=== PATIENT | female | born 1940 | race Caucasian/White ===

== ENCOUNTER 2017-03-27 21:09 | Inpatient (IN) | payer OTHER ==
[~2017-03-27] VITALS: Ht 177.8 cm; Wt 103.4 kg
[2017-03-27 21:14] VITALS: BP_SYST 138
[2017-03-27] MEDS ORDERED: NACL 0.9% 1,000 ML IV ONE (21:45)
[2017-03-27 22:28] LABS: BASOPHILS # (AUTO) 0.1 K/uL (0.0-0.2); BASOPHILS % (AUTO) 0.8 % (0.0-2.0); EOSINOPHILS % (AUTO) 0.1 % (0.0-4.0); HEMATOCRIT 37.2 % (36-48); HEMOGLOBIN 12.6 g/dL (12.0-16.0); LYMPHOCYTES # (AUTO) 1.7 K/uL (1.0-5.5); LYMPHOCYTES % (AUTO) 12.5 % (20.5-51.5); MEAN CORPUSCULAR HEMOGLOBIN 31 pg (27-31); MEAN CORPUSCULAR HGB CONC 34 % (32-36); MEAN CORPUSCULAR VOLUME 92 fL (79.0-98.0); MONOCYTES % (AUTO) 7.8 % (1.7-9.3); NEUTROPHILS # (AUTO) 10.6 K/uL (1.8-7.7); NEUTROPHILS % (AUTO) 78.8 % (40.0-70.0); PLATELET COUNT (AUTO) 264 K/uL (130-430); RED BLOOD CELL COUNT(AUTO) 4.05 MIL/uL (4.2-6.2); RED CELL DISTRIBUTION WIDTH 12.1 % (9.0-15.0); WHITE BLOOD COUNT (AUTO) 13.4 K/uL (4.8-10.8)
[2017-03-27 22:30] LABS: ANION GAP 11 (5-15); CALCIUM 8.4 mg/dL (8.4-11.0); CHLORIDE 97 mmol/L (98-107); CREATININE 0.57 mg/dL (0.55-1.30); GLUCOSE 121 mg/dL (70-99); POTASSIUM 3.3 mmol/L (3.5-5.1); SODIUM SERUM 132 mmol/L (136-145); UREA NITROGEN, BLOOD 9 mg/dL (8-21)
[2017-03-27 22:35] LABS: ALANINE AMINOTRANSFERASE 21 U/L (12-78); ALBUMIN 3.1 g/dL (3.4-4.8); ASPARTATE AMINOTRANSFERASE 21 U/L (10-37); TOTAL BILIRUBIN 0.6 mg/dL (0.0-1.0)
[2017-03-27 22:36] LABS: BILIRUBIN,URINE NEGATIVE (NEGATIVE); BLOOD, URINE 3+ (NEGATIVE); CLARITY/URINE SL CLOUDY (CLEAR); COLOR,URINE YELLOW (YELLOW); GLUCOSE,URINE NEGATIVE (NEGATIVE); KETONES,URINE NEGATIVE (NEGATIVE); LEUKOCYTE ESTERASE ,URINE 1+ (NEGATIVE); NITRITE, URINE NEGATIVE (NEGATIVE); PROTEIN URINE NEGATIVE (NEGATIVE); UROBILINOGEN,URINE 0.2 (0.2-1.0)
[2017-03-27 22:40] LABS: BACTERIA,URINE MANY /HPF (None Seen); URINE AMORPHOUS URATE 1+ /HPF (None Seen)
[2017-03-28] VITALS (7 sets, daily range): BP systolic 117–154
[2017-03-28] MEDS ORDERED: cefTRIAXone 1 GM VIAL ONE (00:30)
[2017-03-28] MEDS ORDERED: D5NS 1,000 ML IV SCH (01:00)
[2017-03-28] MEDS ORDERED: ASPI81TA2 PO ×2 (01:01→05:35)
[2017-03-28] MEDS ORDERED: MUPI1OIN4 ×2 (01:01→05:35)
[2017-03-28] MEDS ORDERED: CEL20 PO ×2 (01:01→05:35)
[2017-03-28] MEDS ORDERED: LIP10 PO (01:01)
[2017-03-28] MEDS ORDERED: DORZ10DR10 OP ×2 (01:01→05:35)
[2017-03-28] MEDS ORDERED: DONE10TA44 PO ×2 (01:01→05:35)
[2017-03-28] MEDS ORDERED: MEMA10TA12 PO ×2 (01:01→05:35)
[2017-03-28] MEDS ORDERED: [UNRECOGNIZED DRUG - CODE] PO ×2 (01:01→05:35)
[2017-03-28] MEDS ORDERED: valACYclovir HCL 500 MG TABLET PO SCH (01:15)
[2017-03-28] MEDS ORDERED: FLU VACC QS 2017-18(36MOS+)/PF 0.5 ML/SYR SYRINGE I.M. PRN ×2 (02:00→17:30)
[2017-03-28] MEDS ORDERED: ACETAMINOPHEN 325 MG TABLET PO PRN (02:15)
[2017-03-28] MEDS: 0.45% NACL 1,000 ML IV SCH ×2 (03:28→20:41)
[2017-03-28] MEDS ORDERED: ATOR10TA68 PO (05:35)
[2017-03-28] MEDS ORDERED: cefTRIAXone 1 GM in D5W 50 ML IV ONE ×3 (09:00)
[2017-03-28] MEDS ORDERED: LEVOFLOXACIN 500 MG/D5W 100 ML IV SCH (09:00)
[2017-03-28] MEDS ORDERED: ATORVASTATIN 10 MG TABLET PO SCH (09:00)
[2017-03-28] MEDS ORDERED: DORZOLAMIDE HCL/TIMOLOL MAL. 10 ML EYE DROPS (COSOPT) OP SCH (09:00)
[2017-03-28] MEDS ORDERED: CITALOPRAM HYDROBROMIDE 20 MG TABLET PO SCH (09:00)
[2017-03-28] MEDS ORDERED: MEMANTINE HCL 5 MG TABLET PO SCH (09:00)
[2017-03-28] MEDS ORDERED: ASPIRIN 81 MG TAB.CHEW PO SCH (09:00)
[2017-03-28] MEDS ORDERED: MUPIROCIN NASAL 2% OINT. 1 GM NS PRN (11:45)
[2017-03-28] MEDS: cefTRIAXone 1 GM in D5W 50 ML IV SCH (11:45)
[2017-03-28 11:56] LABS: BASOPHILS % (AUTO) 0.4 % (0.0-2.0); EOSINOPHILS % (AUTO) 0.3 % (0.0-4.0); HEMATOCRIT 35.3 % (36-48); HEMOGLOBIN 11.9 g/dL (12.0-16.0); LYMPHOCYTES # (AUTO) 1.5 K/uL (1.0-5.5); LYMPHOCYTES % (AUTO) 12.8 % (20.5-51.5); MEAN CORPUSCULAR HEMOGLOBIN 31 pg (27-31); MEAN CORPUSCULAR HGB CONC 34 % (32-36); MEAN CORPUSCULAR VOLUME 93 fL (79.0-98.0); MONOCYTES # (AUTO) 1.3 K/uL (0.0-1.0); MONOCYTES % (AUTO) 11.3 % (1.7-9.3); NEUTROPHILS # (AUTO) 9.1 K/uL (1.8-7.7); NEUTROPHILS % (AUTO) 75.2 % (40.0-70.0); PLATELET COUNT (AUTO) 223 K/uL (130-430); RED BLOOD CELL COUNT(AUTO) 3.81 MIL/uL (4.2-6.2); RED CELL DISTRIBUTION WIDTH 11.9 % (9.0-15.0); WHITE BLOOD COUNT (AUTO) 11.9 K/uL (4.8-10.8)
[2017-03-28] MEDS ORDERED: COMMUNICATION ORDER XX ONE (12:30)
[2017-03-28] MEDS ORDERED: DONEPEZIL HCL 5 MG TABLET (ARICEPT) PO SCH ×2 (21:00)
[2017-03-28] MEDS: NYSTATIN 30 GM TOPICAL CREAM TP SCH (23:51)
[2017-03-28] MEDS: DORZOLAMIDE HCL/TIMOLOL MAL. 10 ML EYE DROPS (COSOPT) OP SCH (23:51)
[2017-03-29 05:00] VITALS: BP_SYST 150
[2017-03-29 07:11] LABS: ALANINE AMINOTRANSFERASE 18 U/L (12-78); ALBUMIN 2.6 g/dL (3.4-4.8); ANION GAP 8 (5-15); ASPARTATE AMINOTRANSFERASE 18 U/L (10-37); CALCIUM 7.9 mg/dL (8.4-11.0); CHLORIDE 98 mmol/L (98-107); CREATININE 0.55 mg/dL (0.55-1.30); GLUCOSE 100 mg/dL (70-99); POTASSIUM 3.6 mmol/L (3.5-5.1); SODIUM SERUM 133 mmol/L (136-145); TOTAL BILIRUBIN 0.5 mg/dL (0.0-1.0); UREA NITROGEN, BLOOD 6 mg/dL (8-21)
[2017-03-29 08:51] VITALS: BP_SYST 124
[2017-03-29] MEDS ORDERED: MEMANTINE HCL 5 MG TABLET PO SCH (09:00)
[2017-03-29] MEDS ORDERED: valACYclovir HCL 500 MG TABLET PO SCH (09:00)
[2017-03-29] MEDS ORDERED: ASPIRIN 81 MG TAB.CHEW PO SCH (09:00)
[2017-03-29] MEDS ORDERED: ATORVASTATIN 10 MG TABLET PO SCH (09:00)
[2017-03-29] MEDS ORDERED: CITALOPRAM HYDROBROMIDE 20 MG TABLET PO SCH (09:00)
[2017-03-29] MEDS ORDERED: LEVO500T20 PO (09:24)
[2017-03-29] MEDS: DORZOLAMIDE HCL/TIMOLOL MAL. 10 ML EYE DROPS (COSOPT) OP SCH (09:52)
[2017-03-29] MEDS: NYSTATIN 30 GM TOPICAL CREAM TP SCH (09:55)
[2017-03-29] MEDS: cefTRIAXone 1 GM in D5W 50 ML IV SCH (10:33)
[2017-03-29 12:35] VITALS: BP_SYST 136
[2017-03-29 12:46] VITALS: BP_SYST 136
== END 2017-03-29 13:18 | DRG 312 ==
LOC: SED 21:09 → SMU 03-28 01:19 → STU 03-28 02:01 → SMU 03-28 02:25 → STU 03-28 12:37 → SMU 03-28 16:06 → STU 03-28 17:06
DX: R55 Syncope and collapse (principal); G93.41 Metabolic encephalopathy; N39.0 Urinary tract infection, site not specified; F03.90 Unspecified dementia, unspecified severity, without behavioral disturbance, psychotic disturbance, mood disturbance, and anxiety; W19.XXXA Unspecified fall, initial encounter; E78.00 Pure hypercholesterolemia, unspecified; Z88.5 Allergy status to narcotic agent; Z79.82 Long term (current) use of aspirin; Z79.899 Other long term (current) drug therapy; Z91.81 History of falling; Y93.89 Activity, other specified; Y92.89 Other specified places as the place of occurrence of the external cause; Y99.8 Other external cause status
CPT/HCPCS: 36415; 70450-TC; 71010; 80053; 81000-TC; 83605; 84484; 85025; 85610-TC; 85730-TC; 87081; 87086; 87186-TC; 93005; 93306; 93880; 96361; 96365; 99285; J0696; J1956; J7030; J7060

== ENCOUNTER 2018-01-04 12:04 | Emergency (ER) | payer OTHER ==
[~2018-01-04] VITALS: Ht 172.7 cm; Wt 99.8 kg
[~2018-01-04 12:04] MED LIST: ASPI81TA2 PO; ATOR10TA68 PO; CEL20 PO; CRAN1CAP6 PO; DONE10TA44 PO; DORZ10DR10 OP; LATA2.5D6 OP; MEMA10TA12 PO; SULF1TAB48 PO; VALA500T PO
[2018-01-04 12:09] VITALS: BP_SYST 109
[2018-01-04 13:23] LABS: BASOPHILS # (AUTO) 0.1 K/uL (0.0-0.2); BASOPHILS % (AUTO) 0.6 % (0.0-2.0); EOSINOPHILS # (AUTO) 0.2 K/uL (0.0-0.4); EOSINOPHILS % (AUTO) 1.8 % (0.0-4.0); HEMATOCRIT 34.9 % (36-48); LYMPHOCYTES # (AUTO) 1.8 K/uL (1.0-5.5); LYMPHOCYTES % (AUTO) 17.8 % (20.5-51.5); MEAN CORPUSCULAR HEMOGLOBIN 32 pg (27-31); MEAN CORPUSCULAR HGB CONC 35 % (32-36); MEAN CORPUSCULAR VOLUME 91 fL (79.0-98.0); MONOCYTES # (AUTO) 0.5 K/uL (0.0-1.0); MONOCYTES % (AUTO) 5.2 % (1.7-9.3); NEUTROPHILS # (AUTO) 7.6 K/uL (1.8-7.7); NEUTROPHILS % (AUTO) 74.6 % (40.0-70.0); PLATELET COUNT (AUTO) 309 K/uL (130-430); RED BLOOD CELL COUNT(AUTO) 3.82 MIL/uL (4.2-6.2); RED CELL DISTRIBUTION WIDTH 12.7 % (9.0-15.0); WHITE BLOOD COUNT (AUTO) 10.2 K/uL (4.8-10.8)
[2018-01-04 13:38] LABS: PROTHROMBIN TIME 10.5 SECS (9.5-12.5)
[2018-01-04 13:44] LABS: ANION GAP 5 (5-15); CALCIUM 8.8 mg/dL (8.4-11.0); CHLORIDE 103 mmol/L (98-107); CREATININE 0.66 mg/dL (0.55-1.30); GLUCOSE 97 mg/dL (70-99); SODIUM SERUM 135 mmol/L (136-145); UREA NITROGEN, BLOOD 13 mg/dL (8-21)
[2018-01-04 14:00] LABS: ALANINE AMINOTRANSFERASE 19 U/L (12-78); ALBUMIN 3.1 g/dL (3.4-4.8); ASPARTATE AMINOTRANSFERASE 21 U/L (10-37); FREE T4 (FREE THYROXINE) 0.8 ng/dL (0.6-1.6); TOTAL BILIRUBIN 0.5 mg/dL (0.0-1.0)
[2018-01-04 14:02] LABS: ALCOHOL, BLOOD < 3 mg/dL (<10)
[2018-01-04 14:23] VITALS: BP_SYST 111
== END 2018-01-04 14:23 | disposition home or self-care (01) ==
LOC: SED 12:04
DX: R53.1 Weakness (principal); G89.29 Other chronic pain; M25.511 Pain in right shoulder; M25.512 Pain in left shoulder; F03.90 Unspecified dementia, unspecified severity, without behavioral disturbance, psychotic disturbance, mood disturbance, and anxiety; I10 Essential (primary) hypertension; Z79.82 Long term (current) use of aspirin; Z79.899 Other long term (current) drug therapy
CPT/HCPCS: 36415; 70450; 71045; 74018; 80053; 82140; 83605; 83880; 84439; 84484; 85025; 85610; 87040; 93005; 99285; G0482